=== PATIENT | male | born 1990 | race Two or more races ===

== ENCOUNTER 2023-05-12 15:19 | Emergency (ER) | payer SELFPAY ==
[~2023-05-12] VITALS: Ht 185.4 cm; Wt 83.9 kg
[2023-05-12 17:45] VITALS: BP 120/78; TEMP 98; O2SAT 100
== END 2023-05-12 17:45 | disposition home or self-care (01) ==
LOC: ER 15:27
DX: H69.81 Other specified disorders of Eustachian tube, right ear (principal)